=== PATIENT | female | born 1985 | race African-American/Black ===

== ENCOUNTER 2019-08-13 14:07 | Emergency (ER) | payer OTHER, SELFPAY ==
[2019-08-13 14:20] VITALS: BP 141/83; PULSE 90; RESP 16; TEMP 36.7; O2SAT 100
--- NOTE | 2019-08-13 14:33 | ED.GENADULT ---
HPI - General Adult General Chief complaint: Upper Respiratory Infection Stated complaint: pos flu History of Present Illness HPI narrative: Patient states that she has had two days of numbness and tingling to bilateral arms. Patient states that she has the tingling on bilateral neck areas. Patient states she has no past medical history and she has no pain . Related Data Home Medications Medication Instructions Recorded Confirmed No Home Medications 08/13/19 08/13/19 Allergies Allergy/AdvReac Type Severity Reaction Status Date / Time No Known Allergies Allergy Verified 08/13/19 14:23 Review of Systems Review of Systems: Narrative: CONSTITUTIONAL: Denies fever, chills, or sweats. EYES: Denies visual changes, redness, or discharge. ENT: Denies rhinorrhea, congestion, sore throat, or otalgia. CARDIOVASCULAR:Denies chest pain, palpitations, or edema. RESPIRATORY: Denies cough or dyspnea. GASTROINTESTINAL: Denies abdominal pain, nausea, vomiting, or diarrhea. GENITOURINARY: Denies dysuria or hematuria. SKIN:[Denies rash or itching. MUSCULOSKELETAL:Denies back pain, joint pain, or myalgia. NEUROLOGIC: Denies headache, numbness, or weakness. Numbness tingling PSYCHIATRIC:Denies anxiety or depression PMFSH Social History Social History Gender identity (if verbalized by the patient): Female Comments At time as signature, I have reviewed and agree with nursing past medical, social, surgical and family history. Please see nursing chart for further information. There is no relevant family history pertinent to the presenting complaint. 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 Patient states she has dizziness when she stands up Course Vital Signs Vital signs: Vital Signs Temperature 98.0 F 08/13/19 14:20 Pulse Rate 90 08/13/19 14:20 Respiratory Rate 16 08/13/19 14:20 Blood Pressure 141/83 H 08/13/19 14:20 Pulse Oximetry 100 08/13/19 14:20 Temperature 98.0 F 08/13/19 14:20 Pulse Rate 90 08/13/19 14:20 Respiratory Rate 16 08/13/19 14:20 Blood Pressure 141/83 H 08/13/19 14:20 Pulse Oximetry 100 08/13/19 14:20 Medical Decision Making Vital Signs Vital Signs: Vital Signs Temperature 98.0 F 08/13/19 14:20 Pulse Rate 90 08/13/19 14:20 Respiratory Rate 16 08/13/19 14:20 Blood Pressure 141/83 H 08/13/19 14:20 Pulse Oximetry 100 08/13/19 14:20 Temperature 98.0 F 08/13/19 14:20 Pulse Rate 90 08/13/19 14:20 Respiratory Rate 16 08/13/19 14:20 Blood Pressure 141/83 H 08/13/19 14:20 Pulse Oximetry 100 08/13/19 14:20 Lab Data Labs: Lab Results 08/13/19 Range/Units 14:38 POC Capillary Glucose 101 (65-105) mg/dl Discharge Plan Discharge Clinical Impression: Numbness and tingling of both upper extremities Patient Disposition: Acute Care Hospital Condition: Stable Prescriptions: No Action No Home Medications RF: 0 Follow-up/Referrals: UNKNOWN,DOCTOR [Primary Care Provider] - Time of Disposition: 14:41 Discharge Date/Time: 08/13/19 14:35
[2019-08-13 14:41] LABS: Glucose Point of Care 101 (65-105)
== END 2019-08-13 14:35 | disposition short-term general hospital (02) ==
PROVIDERS: Emergency Provider Nurse Practitioner Family
DX: R20.0 Anesthesia of skin (principal); R20.2 Paresthesia of skin
CPT/HCPCS: 82948; 99202; G0463